=== PATIENT | male | born 1955 | race African-American/Black ===

== ENCOUNTER 2021-03-14 11:48 | Emergency (ER) | payer MEDICARE, MEDICAID ==
[~2021-03-14] VITALS: Ht 190.5 cm; Wt 72.6 kg
[2021-03-14 12:46] LABS: Basophils # (auto) 0 10 ^3/uL (0-0.2); Basophils % (auto) 0.2 % (0.0-2.0); Eosinophils # (auto) 0 10 ^3/uL (0-0.8); Eosinophils % (auto) 0.1 % (0.0-7.0); Hematocrit 20.9 % (41.0-53.0); Monocytes # (auto) 0.8 10 ^3/uL (0-1.3); Nucleated Red Blood Cells % 0.3 %; White Blood Cell 7.8 10^3/uL (4.4-10.8)
[2021-03-14 12:47] LABS: Lymphocytes # (auto) 1.3 10 ^3/uL (0.4-5.4); Lymphocytes % (auto) 17.1 % (10.0-50.0); Mean Corpuscular Hemoglobin 22.9 pg (28.0-32.0); Mean Corpuscular Hgb Conc. 33.1 g/dL (32.0-36.0); Mean Corpuscular Volume 69.1 fL (80.0-100.0); Monocytes % (auto) 10.1 % (0.0-12.0); Neutrophils # (auto) 5.7 10 ^3/uL (1.6-8.6); Neutrophils % (auto) 72.5 % (37.0-80.0); Platelet Count (auto) 420 10^3/uL (140-450); Red Blood Cells 3.02 10^6/uL (4.5-5.90)
[2021-03-14 12:49] LABS: Hemoglobin 6.9 g/dL (13.5-17.5)
[2021-03-14 12:50] LABS: Red Cell Distribution Width 24.2 % (11.8-14.3)
[2021-03-14 13:11] LABS: Alanine Aminotransferase 17 U/L (16-61); Albumin 2.4 g/dL (3.4-5.0); Anion Gap 6 (5-15); Blood Urea Nitrogen 18 mg/dL (7-18); Calcium 8.3 mg/dL (8.5-10.1); Carbon Dioxide 27 mmol/L (21-32); Chloride 106 mmol/L (98-107); Glucose 165 mg/dL (74-106); Magnesium 2.1 mg/dL (1.6-2.6); Potassium 3.9 mmol/L (3.5-5.1); Sodium 139 mmol/L (136-145)
[2021-03-14 13:26] LABS: Alkaline Phosphatase 1829 U/L (45-117); Aspartate Aminotransferase 110 U/L (15-37); BUN/Creatinine Ratio 18.2; Bilirubin, Total 0.5 mg/dL (0.2-1.0); GFR African American 97 mL/min; GFR Non-African American 80 mL/min; Total Protein 6.9 g/dL (6.4-8.2)
[2021-03-14 14:25] LABS: Urine Bacteria NONE SEEN /hpf (None Seen); Urine Blood Negative /uL (Negative); Urine Specific Gravity 1.016 (1.001-1.035); Urine WBC 9 /hpf (0 - 3)
[2021-03-14 15:35] VITALS: BP 164/90
[2021-03-14 15:50] VITALS: BP 158/83
[2021-03-14 16:29] VITALS: BP 138/70
[2021-03-14] MEDS ORDERED: ONDANSETRON HCL 4 MG/2 ML VIAL IV PRN (16:30)
[2021-03-14] MEDS ORDERED: NITROGLYCERIN 0.4 MG SL TAB SL PRN (16:30)
[2021-03-14] MEDS ORDERED: MORPHINE SULF INJ 2 MG/ML SYRINGE 1ML IV PRN ×2 (16:30)
[2021-03-14] MEDS ORDERED: ACETAMINOPHEN 325 MG TAB PO PRN (16:30)
[2021-03-14 17:35] VITALS: BP 152/84
[2021-03-14] MEDS ORDERED: ACETAMINOPHEN 500 MG TAB PO ONE (18:15)
[2021-03-14 19:31] LABS: Basophils # (auto) 0 10 ^3/uL (0-0.2); Eosinophils # (auto) 0 10 ^3/uL (0-0.8); Nucleated Red Blood Cells % 0.1 %
[2021-03-14 19:32] LABS: Basophils % (auto) 0.2 % (0.0-2.0); Hematocrit 22.6 % (41.0-53.0); Hemoglobin 7.9 g/dL (13.5-17.5); Lymphocytes # (auto) 1.2 10 ^3/uL (0.4-5.4); Lymphocytes % (auto) 11.6 % (10.0-50.0); Mean Corpuscular Hemoglobin 24.6 pg (28.0-32.0); Mean Corpuscular Volume 70.1 fL (80.0-100.0); Monocytes # (auto) 1.1 10 ^3/uL (0-1.3); Monocytes % (auto) 11.1 % (0.0-12.0); Neutrophils % (auto) 77.1 % (37.0-80.0); Platelet Count (auto) 390 10^3/uL (140-450); Red Blood Cells 3.22 10^6/uL (4.5-5.90); White Blood Cell 10.3 10^3/uL (4.4-10.8)
[2021-03-14 19:44] LABS: Red Cell Distribution Width 24.7 % (11.8-14.3)
[2021-03-14] MEDS ORDERED: METOPROLOL TARTRATE 25 MG TAB PO SCH (22:00)
[2021-03-14] MEDS ORDERED: IBUPROFEN 800 MG TAB PO ONE (23:00)
[2021-03-14 23:26] VITALS: BP 141/74
[2021-03-15] MEDS ORDERED: ASPirin 81 mg TAB PO SCH (10:00)
== END 2021-03-14 23:43 | disposition home or self-care (01) ==
LOC: ER 11:48
DX: D64.9 Anemia, unspecified (principal); F17.210 Nicotine dependence, cigarettes, uncomplicated; Z20.822 Contact with and (suspected) exposure to COVID-19
CPT/HCPCS: 36415; 36430; 80053; 81001; 83735; 84484; 85025; 85049; 86850; 86900; 86901; 86920; 87426; 99285; P9016

== ENCOUNTER 2021-04-11 16:42 | Inpatient (IN) | payer MEDICARE, MEDICAID ==
[~2021-04-11] VITALS: Ht 188 cm; Wt 61.4 kg
[2021-04-11 18:54] LABS: Urine Bacteria NONE SEEN /hpf (None Seen); Urine Blood Negative /uL (Negative); Urine Mucus FEW (None Seen); Urine Specific Gravity 1.026 (1.001-1.035); Urine WBC 24 /hpf (0 - 3)
[2021-04-11 19:09] LABS: Amphetamine Screen, Urine NEGATIVE (NEGATIVE); Barbiturate Scree,Urine NEGATIVE (NEGATIVE); Benzodiazephine Screen, Urine NEGATIVE (NEGATIVE); Cannabinoid Screen, Urine NEGATIVE (NEGATIVE); Cocaine Screen, Urine NEGATIVE (NEGATIVE); Opiate Scree,Urine NEGATIVE (NEGATIVE); Phencyclidine Screen, Urine NEGATIVE (NEGATIVE)
[2021-04-11] MEDS ORDERED: ONDANSETRON HCL 4 MG/2 ML VIAL IV ONE (20:15)
[2021-04-11] MEDS ORDERED: fentaNYL CITRATE 100 MCG/2 ML VL IV ONE (20:15)
[2021-04-11 20:24] LABS: Basophils # (auto) 0 10 ^3/uL (0-0.2); Eosinophils # (auto) 0 10 ^3/uL (0-0.8); Lymphocytes # (auto) 1.2 10 ^3/uL (0.4-5.4); Lymphocytes % (auto) 21.6 % (10.0-50.0); Monocytes # (auto) 0.6 10 ^3/uL (0-1.3)
[2021-04-11 20:27] LABS: Basophils % (auto) 0.2 % (0.0-2.0); Hematocrit 23.5 % (41.0-53.0); Hemoglobin 7.6 g/dL (13.5-17.5); Mean Corpuscular Hemoglobin 22.6 pg (28.0-32.0); Mean Corpuscular Hgb Conc. 32.6 g/dL (32.0-36.0); Mean Corpuscular Volume 69.4 fL (80.0-100.0); Monocytes % (auto) 10.9 % (0.0-12.0); Neutrophils # (auto) 3.6 10 ^3/uL (1.6-8.6); Neutrophils % (auto) 67.3 % (37.0-80.0); Red Blood Cells 3.38 10^6/uL (4.5-5.90); White Blood Cell 5.4 10^3/uL (4.4-10.8)
[2021-04-11 20:33] LABS: Red Cell Distribution Width 23.1 % (11.8-14.3)
[2021-04-11 20:38] LABS: Alanine Aminotransferase 10 U/L (16-61); Albumin 1.8 g/dL (3.4-5.0); Anion Gap 7 (5-15); Aspartate Aminotransferase 19 U/L (15-37); BUN/Creatinine Ratio 34.7; Blood Urea Nitrogen 25 mg/dL (7-18); Calcium 8.4 mg/dL (8.5-10.1); Carbon Dioxide 26 mmol/L (21-32); Chloride 103 mmol/L (98-107); GFR African American 140 mL/min; GFR Non-African American 115 mL/min; Glucose 114 mg/dL (74-106); Potassium 3.7 mmol/L (3.5-5.1); Sodium 136 mmol/L (136-145)
[2021-04-11 20:42] LABS: Alkaline Phosphatase 847 U/L (45-117); Bilirubin, Total 0.6 mg/dL (0.2-1.0); Magnesium 2.1 mg/dL (1.6-2.6); Total Protein 6.2 g/dL (6.4-8.2)
[2021-04-11 21:38] LABS: INR 1.26 (0.9-1.15)
[2021-04-11] MEDS ORDERED: cefTRIAXone 1GM/50ML D5W 50 ML IV ONE (23:30)
[2021-04-11] MEDS ORDERED: SODIUM CHLORIDE 0.9% 1,000 ML IV ONE (23:30)
[2021-04-11] MEDS ORDERED: DexAMETHasone SOD PHOS 10MG/1ML VIAL INJ IV ONE (23:45)
[2021-04-12] MEDS ORDERED: ADENOSINE 6 MG/2 ML INJ IV ONE (03:15)
[2021-04-12] MEDS ORDERED: MORPHINE SULFATE 4 MG/ML SYR/VIAL IV PRN ×2 (04:15→22:15)
[2021-04-12] MEDS ORDERED: ONDANSETRON HCL 4 MG/2 ML VIAL IV PRN ×2 (04:15→22:00)
[2021-04-12] MEDS ORDERED: MORPHINE SULF INJ 2 MG/ML SYRINGE 1ML IV PRN ×2 (04:15→22:15)
[2021-04-12] MEDS ORDERED: ACETAMINOPHEN 325 MG TAB PO PRN ×2 (04:15→22:15)
[2021-04-12] MEDS ORDERED: HYDROcodone-ACET 5/325MG TAB PO PRN ×2 (04:15→22:15)
[2021-04-12] MEDS ORDERED: DOCUSATE SOD 100 MG CAP PO PRN ×2 (04:15→22:15)
[2021-04-12] MEDS ORDERED: NITROGLYCERIN 0.4 MG SL TAB SL PRN ×2 (04:15→22:15)
[2021-04-12] MEDS: SODIUM CHLORIDE 0.9% 1,000 ML IV SCH ×4 (04:28→22:00)
[2021-04-12] MEDS: ALBUMIN 25% 50 ML IV SCH ×4 (04:30→20:18)
[2021-04-12] MEDS ORDERED: IOHEXOL 350 MG/ML 100ML IJ ONE (04:34)
[2021-04-12 09:00] VITALS: BP 123/71
[2021-04-12] MEDS ORDERED: MULTIPLE VITAMIN TAB PO SCH (10:00)
[2021-04-12] MEDS ORDERED: HEPARIN SODIUM (PORCINE) 5000 UNITS/ML 1ML VIAL SC SCH (10:00)
[2021-04-12] MEDS ORDERED: ZINC SULFATE 220mg CAP or TAB PO SCH (10:00)
[2021-04-12] MEDS ORDERED: FAMOTIDINE (10MG/ML) 2ML VL IV SCH (10:00)
[2021-04-12] MEDS ORDERED: ASCORBIC ACID 500 MG TAB PO SCH (10:00)
[2021-04-12] MEDS ORDERED: DexAMETHasone SOD PHOS 10MG/1ML VIAL INJ IV SCH (10:00)
[2021-04-12 10:44] LABS: Basophils # (auto) 0 10 ^3/uL (0-0.2); Basophils % (auto) 0.1 % (0.0-2.0); Eosinophils # (auto) 0 10 ^3/uL (0-0.8); Monocytes # (auto) 0.1 10 ^3/uL (0-1.3); Neutrophils % (auto) 79.1 % (37.0-80.0)
[2021-04-12 10:46] LABS: Hematocrit 26.7 % (41.0-53.0); Hemoglobin 8.7 g/dL (13.5-17.5); Lymphocytes % (auto) 18.3 % (10.0-50.0); Mean Corpuscular Hgb Conc. 32.7 g/dL (32.0-36.0); Mean Corpuscular Volume 70.2 fL (80.0-100.0); Monocytes % (auto) 2.5 % (0.0-12.0); Neutrophils # (auto) 4.1 10 ^3/uL (1.6-8.6); Red Blood Cells 3.81 10^6/uL (4.5-5.90); White Blood Cell 5.2 10^3/uL (4.4-10.8)
[2021-04-12 10:51] LABS: Red Cell Distribution Width 23.1 % (11.8-14.3)
[2021-04-12 11:10] LABS: Albumin 1.9 g/dL (3.4-5.0); Calcium 8.8 mg/dL (8.5-10.1); Potassium 4.4 mmol/L (3.5-5.1)
[2021-04-12 11:13] LABS: BUN/Creatinine Ratio 33.8; Bilirubin, Total 0.5 mg/dL (0.2-1.0); Total Protein 6.6 g/dL (6.4-8.2)
[2021-04-12 13:00] VITALS: BP 118/66
[2021-04-12 17:00] VITALS: BP 116/66
[2021-04-12] MEDS ORDERED: cefTRIAXone 1GM/50ML D5W 50 ML IV SCH (21:00)
[2021-04-12 22:00] VITALS: BP 104/57
[2021-04-12] MEDS ORDERED: LORazepam 2MG/ML-1ML VIAL IV PRN (22:00)
[2021-04-12] MEDS: FAMOTIDINE (10MG/ML) 2ML VL IV SCH (22:14)
[2021-04-12] MEDS: cefTRIAXone 1GM/50ML D5W 50 ML IV SCH (22:39)
[2021-04-13 05:00] VITALS: BP 122/64
[2021-04-13] MEDS: SODIUM CHLORIDE 0.9% 1,000 ML IV SCH ×2 (06:34→14:40)
[2021-04-13 09:00] VITALS: BP 123/62
[2021-04-13 09:39] LABS: Basophils # (auto) 0 10 ^3/uL (0-0.2); Basophils % (auto) 0.1 % (0.0-2.0); Eosinophils # (auto) 0 10 ^3/uL (0-0.8); Hemoglobin 8.7 g/dL (13.5-17.5); Lymphocytes # (auto) 1.7 10 ^3/uL (0.4-5.4); Monocytes # (auto) 0.4 10 ^3/uL (0-1.3); Nucleated Red Blood Cells % 0.1 %
[2021-04-13 09:41] LABS: Hematocrit 26.5 % (41.0-53.0); Lymphocytes % (auto) 27.8 % (10.0-50.0); Mean Corpuscular Hemoglobin 22.8 pg (28.0-32.0); Mean Corpuscular Hgb Conc. 32.6 g/dL (32.0-36.0); Mean Corpuscular Volume 69.9 fL (80.0-100.0); Monocytes % (auto) 6.8 % (0.0-12.0); Neutrophils # (auto) 4.1 10 ^3/uL (1.6-8.6); Neutrophils % (auto) 65.3 % (37.0-80.0); White Blood Cell 6.3 10^3/uL (4.4-10.8)
[2021-04-13 09:54] LABS: Potassium 3.9 mmol/L (3.5-5.1)
[2021-04-13 09:55] LABS: % Iron Saturation 25.7 % (20-55)
[2021-04-13 09:56] LABS: Red Cell Distribution Width 23.5 % (11.8-14.3)
[2021-04-13 10:04] LABS: BUN/Creatinine Ratio 30.6; Bilirubin, Total 0.3 mg/dL (0.2-1.0); CRP High Sensitivity 5.34 mg/dL (< 0.3); Total Protein 6.6 g/dL (6.4-8.2)
[2021-04-13 10:28] LABS: Ferritin 1641.5 ng/mL (10-322); Free T4 (Free Thyroxine) 0.92 ng/dL (0.89-1.76)
[2021-04-13 10:29] LABS: Carcinoembryonic Antigen 1.64 ng/mL (<5.0 OR =)
[2021-04-13] MEDS: FAMOTIDINE (10MG/ML) 2ML VL IV SCH ×2 (10:50→21:22)
[2021-04-13 13:00] VITALS: BP 132/72
[2021-04-13] MEDS: SODIUM FERR GLUC 125 MG in NS 100 ML IV SCH (13:21)
[2021-04-13 17:00] VITALS: BP 102/63
[2021-04-13] MEDS: cefTRIAXone 1GM/50ML D5W 50 ML IV SCH (21:22)
[2021-04-13 22:00] VITALS: BP 144/71
[2021-04-14] MEDS: SODIUM CHLORIDE 0.9% 1,000 ML IV SCH ×3 (00:26→15:40)
[2021-04-14 05:00] VITALS: BP 134/75
[2021-04-14 09:00] VITALS: BP 130/75
[2021-04-14 09:19] LABS: Folate (Folic Acid) 9.03 ng/mL (5.38-24)
[2021-04-14] MEDS: FAMOTIDINE (10MG/ML) 2ML VL IV SCH ×2 (09:33→20:39)
[2021-04-14] MEDS ORDERED: IOHEXOL 300 MG/ML 100ML BOTTLE IJ ONE (10:30)
[2021-04-14] MEDS ORDERED: IRON SUCROSE COMPLEX 200 MG in SODIUM CHL 0.9% 100 ML IV SCH (12:00)
[2021-04-14 13:00] VITALS: BP 145/68
[2021-04-14] MEDS ORDERED: GADOTERATE MEG 10 MMOL/20ml INJ (0.5MMOL/ml) IV ONE (14:00)
[2021-04-14 14:40] LABS: Hepatitis A Ab IgM Negative; Hepatitis B Core IgM Negative; Hepatitis B Surface Antigen Negative (Negative); Hepatitis C Antibody Negative (Negative)
[2021-04-14] MEDS: SODIUM FERR GLUC 125 MG in NS 100 ML IV SCH (14:41)
[2021-04-14] MEDS: cefTRIAXone 1GM/50ML D5W 50 ML IV SCH (20:36)
[2021-04-14 22:00] VITALS: BP 126/84
[2021-04-14] MEDS ORDERED: CYANOCOBALAMIN (B-12) 1000 MCG/1 ML VIAL IM ONE (22:00)
[2021-04-15] VITALS (7 sets, daily range): BP systolic 113–155; BP diastolic 60–90
[2021-04-15] MEDS: SODIUM CHLORIDE 0.9% 1,000 ML IV SCH ×3 (00:20→16:40)
[2021-04-15] MEDS: CYANOCOBALAMIN 500 MCG TAB PO SCH (11:55)
[2021-04-15] MEDS: FAMOTIDINE (10MG/ML) 2ML VL IV SCH ×2 (11:55→21:01)
[2021-04-15] MEDS: SODIUM FERR GLUC 125 MG in NS 100 ML IV SCH (16:34)
[2021-04-15] MEDS: cefTRIAXone 1GM/50ML D5W 50 ML IV SCH (20:41)
[2021-04-16] MEDS: SODIUM CHLORIDE 0.9% 1,000 ML IV SCH ×2 (01:00→09:20)
[2021-04-16 05:31] VITALS: BP 113/70
[2021-04-16] MEDS ORDERED: HYDROmorphone HCL 2 MG/ML VL IV PRN (08:00)
[2021-04-16 09:00] VITALS: BP 121/65
[2021-04-16] MEDS ORDERED: HYDROmorphone HCL 2 MG/ML VL IV ONE (09:00)
[2021-04-16] MEDS: CYANOCOBALAMIN 500 MCG TAB PO SCH (09:50)
[2021-04-16] MEDS: FAMOTIDINE (10MG/ML) 2ML VL IV SCH (09:50)
[2021-04-16 11:30] VITALS: BP 121/65
== END 2021-04-16 17:20 | disposition home health service (06) | DRG 720 ==
LOC: EDUNIT# 16:42 → ER 16:42 → EDBD 16:42 → TELE-WESTW 04-12 04:19 → ER 04-12 05:54
PROVIDERS: ADMIT Nurse Practitioner Family; ATTEND Family Medicine
PROC: 07JT3ZZ Inspection of Bone Marrow, Percutaneous Approach (ICD-10-PCS; principal; 2021-04-16)
DX: A41.9 Sepsis, unspecified organism (principal); G93.6 Cerebral edema; G93.41 Metabolic encephalopathy; E43 Unspecified severe protein-calorie malnutrition; C77.9 Secondary and unspecified malignant neoplasm of lymph node, unspecified; C79.51 Secondary malignant neoplasm of bone; C61 Malignant neoplasm of prostate; C78.00 Secondary malignant neoplasm of unspecified lung; D47.2 Monoclonal gammopathy; Z20.822 Contact with and (suspected) exposure to COVID-19; N39.0 Urinary tract infection, site not specified; D63.8 Anemia in other chronic diseases classified elsewhere; D32.0 Benign neoplasm of cerebral meninges; I10 Essential (primary) hypertension; Z68.1 Body mass index [BMI] 19.9 or less, adult; D50.9 Iron deficiency anemia, unspecified; E11.9 Type 2 diabetes mellitus without complications; F03.90 Unspecified dementia, unspecified severity, without behavioral disturbance, psychotic disturbance, mood disturbance, and anxiety; F17.210 Nicotine dependence, cigarettes, uncomplicated; F20.9 Schizophrenia, unspecified; F79 Unspecified intellectual disabilities; F81.9 Developmental disorder of scholastic skills, unspecified; R32 Unspecified urinary incontinence; Z53.9 Procedure and treatment not carried out, unspecified reason; Z83.3 Family history of diabetes mellitus; Z79.84 Long term (current) use of oral hypoglycemic drugs; Z79.899 Other long term (current) drug therapy
CPT/HCPCS: 36415; 70450; 70553; 71045; 71275; 72131; 74177; 78306; 80053; 80074; 80307; 81001; 82105; 82232; 82378; 82607; 82728; 82746; 82784; 82962; 83010; 83036; 83540; 83550; 83605; 83615; 83735; 83880; 83883; 84154; 84155; 84165; 84439; 84443; 84484; 85025; 85045; 85610; 85652; 86141; 86300; 86301; 86334; 86703; 86850; 86880; 86900; 86901; 87040; 87081; 87086; 87426; 93005; 96365; 96375; 97110; 97116; 97163; 97530; G0378; J0696; J1100; J2405; J3490